=== PATIENT | male | born 1975 | race Caucasian/White ===

== ENCOUNTER 2020-03-27 05:03 | Emergency (ER) | payer BC ==
[~2020-03-27] VITALS: Ht 190.5 cm; Wt 145.4 kg
[2020-03-27] MEDS ORDERED: ALBU8HFA PO (05:12)
[2020-03-27] MEDS ORDERED: PRED20TA PO (05:12)
[2020-03-27] MEDS ORDERED: DOXY100C43 PO (05:12)
[2020-03-27 05:24] VITALS: BP 128/78
== END 2020-03-27 05:25 | disposition home or self-care (01) ==
LOC: ER 05:04
DX: J20.9 Acute bronchitis, unspecified (principal); J45.909 Unspecified asthma, uncomplicated; Z79.899 Other long term (current) drug therapy
CPT/HCPCS: 99283